=== PATIENT | female | born 1940 | race Caucasian/White ===

== ENCOUNTER 2018-04-13 13:45 | Inpatient (IN) | payer MEDICARE, BC ==
[2018-04-13] MEDS ORDERED: Diltiazem 25 MG/5 ML SDV IVPUSH ONE (14:01)
[2018-04-13] MEDS ORDERED: Sodium Chloride 0.9% 1,000 ML IV SCH ×2 (14:15→15:30)
[2018-04-13] MEDS ORDERED: Diltiazem 100 MG in Sodium Chloride 0.9% 100 ML IV SCH (14:15)
[2018-04-13] MEDS ORDERED: Diltiazem 50 MG/10 ML SDV IVPUSH ONE (15:00)
--- NOTE | 2018-04-14 07:38 | ER ---
DATE OF SERVICE: 04/13/2018 HISTORY OF PRESENT ILLNESS: This is a 78-year-old woman who presents stating that she woke up this morning with chest heaviness, and she also has intermittent palpitations. She denies any shortness of breath, but states she does not feel quite right. She has no nausea, no vomiting, no fever, no chills. She denies any pain with taking a deep breath. Normally, she is in pretty good shape. She does have a history of early dementia and is on Aricept for this. Mostly, it is the short-term memory that appears to be compromised. She denies any cardiac history. She is on Paxil also and a baby aspirin a day. PAST MEDICAL HISTORY: Significant for early onset dementia. SOCIAL HISTORY: She does not smoke. She does not drink. She is and lives with her . PHYSICAL EXAMINATION: VITAL SIGNS: Pulse is in the 140s, blood pressure 110/70, respiratory rate 20 and unlabored. She is afebrile. LUNGS: Good air movement. No wheezes. No crackles. HEART: Irregularly irregular. ABDOMEN: Soft. No localized tenderness. No guarding. No rebound. BACK: No CVA tenderness. EXTREMITIES: Show no clubbing, cyanosis, or edema. LABS/DIAGNOSTIC DATA: Chest x-ray reveals a normal cardiac silhouette and the lungs are clear. Her initial troponin was negative. ASSESSMENT: Atrial fibrillation with a rapid ventricular rate. EMERGENCY ROOM COURSE: She received 10 of Cardizem IV. Her pulse initially slowed down to the 70s, but then went back up again to the 120s. She received a second 10 mg dose of Cardizem and was initiated on a 5 mg an hour drip. After about 4 hours into the drip, she converted into sinus rhythm. She was given Cardizem CD 120 mg orally and sent home on Cardizem CD 120 mg every day and asked to continue her other medication. Because she converted, she was never initiated on anticoagulation, however, this is something to be watched and to be considered on followup. She also received a liter and a half of fluids over the time she was here. I asked her to follow up in clinic this week for reevaluation. ALLY/NILESH /[id number] ARISTEO
--- NOTE | 2018-04-14 08:35 | CR ---
PA AND LATERAL CHEST, 04/13/18 Comparison made to a prior exam dated 01/09/17. The heart size is normal. The aorta is calcified and ectatic. There is linear fibrosis in the left lung base. The lungs are otherwise clear. No pneumothorax. No pleural effusions. No evidence of acute intrathoracic disease. [id number] [facility]
== END 2018-04-13 20:45 | disposition home or self-care (01) | DRG 310 ==
LOC: LB.ED 13:45 → LB.MS 15:30
PROVIDERS: ADMIT Family Medicine; ATTEND Family Medicine
DX: I48.91 Unspecified atrial fibrillation (principal); F03.90 Unspecified dementia, unspecified severity, without behavioral disturbance, psychotic disturbance, mood disturbance, and anxiety; R07.89 Other chest pain; R00.2 Palpitations; Z79.82 Long term (current) use of aspirin
CPT/HCPCS: 36415; 71046; 80053; 83880; 84443; 84484; 85025; 93005; J3490; J7030; J7050

== ENCOUNTER 2020-05-24 19:53 | Emergency (ER) | payer MEDICARE, BC ==
[2020-05-24] MEDS ORDERED: Triamcinolone Acetonide 40 MG/ML 1 ML SDV IM ONE (20:03)
[2020-05-24] MEDS ORDERED: predniSONE 20 MG Tab PO ONE (20:16)
--- NOTE | 2020-05-24 21:40 | ER ---
DATE OF VISIT: 05/24/2020 HISTORY OF PRESENT ILLNESS: A 80-year-old lady here with complaints of poison phillip that started on her left facial cheek. She states she gets it on a regular basis and if she comes in right away, the treatment usually works very well. The patient is feeling a tingling sensation and can start to see a rash on the left facial cheek. This is the only area of involvement. She has not been sick. She has not been running a fever. OBJECTIVE: GENERAL APPEARANCE: The patient is awake and alert. Pleasant and talkative. No obvious distress. SKIN: Examining the patient's face reveals she does have a macular mildly erythematous rash encompassing about half of her left facial cheek. I do not see any rash on the right side. There are no blisters, pustules or scabs noted. DIAGNOSIS: Rhus dermatitis, early stage. TREATMENT PLAN: I will give the patient Kenalog 60 mg IM. I also will give her prednisone 20 mg p.o. that she can take tonight since the Kenalog takes a little while to get in her system. She is to use antihistamine such as Benadryl as needed and monitor her symptoms closely. Follow up is p.r.nLisa CEBALLOS/NILESH /[id number]
== END 2020-05-24 20:25 | disposition home or self-care (01) ==
LOC: LB.ED 19:53
DX: L23.7 Allergic contact dermatitis due to plants, except food (principal)
CPT/HCPCS: 96372; 99282; J3301; J7512